=== PATIENT | male | born 1980 | race African-American/Black ===

== ENCOUNTER 2016-11-14 15:33 | Emergency (ER) | payer MEDICAID ==
[~2016-11-14] VITALS: Ht 193 cm; Wt 78.0 kg
[2016-11-14 16:09] VITALS: BP 114/78
== END 2016-11-15 01:45 | disposition left against medical advice (07) ==
LOC: ER 11-15 01:41
DX: Z53.21 Procedure and treatment not carried out due to patient leaving prior to being seen by health care provider (principal)

== ENCOUNTER 2017-09-03 13:52 | Emergency (ER) | payer MEDICAID ==
[~2017-09-03] VITALS: Ht 193 cm; Wt 78.0 kg
[2017-09-03] MEDS ORDERED: KETOROLAC 60MG/2ML VIAL IM STA (16:42)
[2017-09-03] MEDS ORDERED: ONDANSETRON HCL 4MG/2ML VIAL IM STA (16:42)
[2017-09-03] MEDS ORDERED: HYDROCODONE/ACETAMINOPHEN 5/325MG TABLET PO STA (17:37)
[2017-09-03 18:13] VITALS: BP 131/84
== END 2017-09-03 18:12 | disposition home or self-care (01) ==
LOC: ER 13:52
DX: S62.396A Other fracture of fifth metacarpal bone, right hand, initial encounter for closed fracture (principal); F17.200 Nicotine dependence, unspecified, uncomplicated; Z98.890 Other specified postprocedural states; W22.01XA Walked into wall, initial encounter; Y93.89 Activity, other specified; Y92.018 Other place in single-family (private) house as the place of occurrence of the external cause
CPT/HCPCS: 29125; 73110; 73130; 96372; 99284; J1885; J2405; A4565